=== PATIENT | female | born 1960 | race Two or more races ===

== ENCOUNTER 2016-07-26 21:41 | Emergency (ER) | payer MEDICAID, OTHER ==
[~2016-07-26] VITALS: Ht 160 cm; Wt 72.6 kg
[2016-07-26] MEDS ORDERED: CYCLOBENZAPRINE10 MG ORAL (22:07)
[2016-07-26] MEDS ORDERED: Cyclobenzaprine 10mg Tab ORAL ONE (22:15)
[2016-07-26 22:24] VITALS: BP 129/74
[2016-07-26 22:25] VITALS: BP 131/71
--- NOTE | 2016-07-27 01:53 | Emergency Room Report ---
History of Present Illness General Chief Complaint: Back Pain-No Injury Source: Patient Present Illness HPI 56-year-old female presents ED complaining of back pain. Back pain started this morning. Notes pain to the left upper back. Denies trauma. Pa n is throbbing, 9/10, nonradiating. Worse with bending and twisting. Denies chest pain or shortness of breath. Denies cough. Took [id number] medications without relief. No other aggravating relieving factors. Denies any other associated symptoms Allergies: Coded Allergies: No Known Allergies (Unverified , 07/26/16) Patient History Past Medical History: none Past Surgical History: none Pertinent Family History: none Social History: Denies: alcohol use, drug use, smoking Now: No Immunizations: UTD Reviewed Nursing Documentation: PMH: Agreed, PSxH: Agreed Nursing Documentation-PMH Past Medical History: No Stated History Review of Systems All Other Systems: negative except mentioned in HPI Physical Exam Vital Signs Date Time Temp Pulse Resp B/P Pulse Ox O2 Delivery O2 Flow Rate FiO2 07/26/16 21:48 98.1 65 12 131/71 97 07/26/16 22:24 Room Air Sp02 EP Interpretation: reviewed, normal General Appearance: no apparent distress, alert, GCS 15, non-toxic Head: normocephalic Eyes: bilateral eye PERRL, bilateral eye normal inspection ENT: normal ENT inspection Neck: normal inspection Respiratory: chest non-tender, lungs clear, normal breath sounds, speaking full sentences Cardiovascular #1: regular rate, rhythm, no edema Gastrointestinal: normal inspection Rectal: normal exam, deferred Genitourinary: no CVA tenderness Musculoskeletal: tender - TTP mid thoracic under L shoulder blade Neurologic: alert, oriented x3, responsive, motor strength/tone normal, sensory intact, speech normal Psychiatric: normal inspection Skin: normal inspection Lymphatic: normal inspection Medical Decision Making Diagnostic Impression: Primary Impression: Back pain Qualified Codes: M54.6 - Pain in thoracic spine ER Course Hospital Course 56-year-old female presents ED complaining of upper back pain. No evidence of trauma Differential diagnoses include: pyelonephritis, kidney stone, muscle strain, rib pain Clinical course Patient placed on stretcher. After initial history and physical I ordered flexeril for pain. patient took motrin prior to arrival. Upon reassessment patient states pain has improved. Diagnosis - back pain Stable and discharged to home with prescription for Flexeril. Followup with PMD. Return to ED if symptoms recur or worsen Last Vital Signs Date Time Temp Pulse Resp B/P Pulse Ox O2 Delivery O2 Flow Rate FiO2 07/26/16 22:25 98.1 12 131/71 97 07/26/16 22:24 69 Room Air Status: improved Disposition: HOME, SELF-CARE Condition: Stable Scripts Cyclobenzaprine Hcl* (FLEXERIL*) 10 Mg Tablet 10 MG ORAL TID Y for Muscle Spasm, #20 TAB Prov: JOSE HA M.D. 07/26/16 Referrals: [facility] (PCP) Patient Instructions: Mid-Back Strain With [facility]hab[facility] JOSE HA M.D. Jul 27, 2016 01:53
== END 2016-07-26 22:26 | disposition home or self-care (01) ==
LOC: EMR 22:05
DX: M54.6 Pain in thoracic spine (principal)
CPT/HCPCS: 99283

== ENCOUNTER 2016-07-29 08:34 | Emergency (ER) | payer OTHER ==
[~2016-07-29] VITALS: Ht 160 cm; Wt 72.6 kg
[~2016-07-29 08:34] MED LIST: CYCLOBENZAPRINE10 MG ORAL
[2016-07-29] MEDS ORDERED: IBUPROFEN600 MG ORAL (08:45)
[2016-07-29 10:00] VITALS: BP 107/71
--- NOTE | 2016-07-30 23:11 | Cardiology Report ---
APPROVED REPORT EKG Measurement Heart [id number] Normal sinus rhythm Possible Left atrial enlargement Borderline ECG
--- NOTE | 2016-07-31 09:17 | Emergency Room Report ---
History of Present Illness General Chief Complaint: Pain Source: Patient, Family Member Present Illness HPI Patient present with complaints of pain to the left rhomboid region reports that she was here over the weekend and the pain medication does not appear to be significantly helping Patient denies any fall or trauma denies any chest pain or short of breath Denies any neck pain denies any lower back pain Pain is significantly reproduced with movement of her left shoulder across her body Any palpation of the area Denies any rash denies any other neuropathy Allergies: Coded Allergies: No Known Allergies (Unverified , 07/26/16) Patient History Past Medical History: see triage record Pertinent Family History: none Reviewed Nursing Documentation: PMH: Agreed, PSxH: Agreed Nursing Documentation-PMH Past Medical History: No Stated History Review of Systems All Other Systems: negative except mentioned in HPI Physical Exam Vital Signs Date Time Temp Pulse Resp B/P Pulse Ox O2 Delivery O2 Flow Rate FiO2 07/29/16 08:40 98.2 73 18 127/81 97 Room Air Sp02 EP Interpretation: reviewed, normal General Appearance: well appearing Head: normocephalic, atraumatic Eyes: bilateral eye EOMI, bilateral eye PERRL ENT: hearing grossly normal, normal pharynx Neck: full range of motion, supple Respiratory: lungs clear, normal breath sounds Cardiovascular #1: regular rate, rhythm, no edema Gastrointestinal: non tender, soft Musculoskeletal: other - Patient has very specific pinpoint discomfort on palpation of the left mid rhomboid area, just between the scaphoid and the spinal area, patient is tender on palpation, extension of her left arm and reaching across her body, no obvious rash is notified no obvious mass Neurologic: alert, oriented x3, veterinary nurse III-XII nml as tested Skin: no rash Lymphatic: no adenopathy Medical Decision Making Diagnostic Impression: Primary Impression: myalgia ER Course Given the patient's repeat presentation increased consideration is made for multiple differentials including referred pain such as cardiac pathology Cardiopulmonary and vascular issues, orthopedic pathology Patient's exam however appears to be very specific I did obtain EKG which showed a normal sinus rhythm And the patient is stable for continued close outpatient followup EKG Diagnostic Results Rate: normal Rhythm: NSR ST Segments: no acute changes Last Vital Signs Date Time Temp Pulse Resp B/P Pulse Ox O2 Delivery O2 Flow Rate FiO2 07/29/16 10:00 66 16 107/71 96 Room Air 07/29/16 10:00 98.2 Status: improved Disposition: HOME, SELF-CARE Condition: Stable Referrals: [facility] (PCP) Patient Instructions: Muscle Pain, Adult Additional Instructions: Patient is provided with the discharge instructions notified to follow up with primary doctor in the next 2-3 days otherwise return to the er with any worsening symptoms. Please note that this report is being documented using [employer]AGON technology. This can lead to erroneous entry secondary to incorrect interpretation by the dictating instrument. CELIA RODRIGUEZ D.O. Jul 31, 2016 09:17
== END 2016-07-29 10:00 | disposition home or self-care (01) ==
LOC: EMR 09:02
DX: M79.1 Myalgia (principal)
CPT/HCPCS: 93005; 99283